=== PATIENT | female | born 1990 | race Caucasian/White ===

== ENCOUNTER 2023-01-12 06:25 | Emergency (ER) | payer OTHER ==
[~2023-01-12] VITALS: Ht 182.9 cm; Wt 99.8 kg
[2023-01-12 06:44] VITALS: BP 118/69; PULSE 84; RESP 20; TEMP 98; O2SAT 98
== END 2023-01-12 08:15 | disposition left against medical advice (07) ==
LOC: MED 06:25
DX: R00.2 Palpitations (principal); Z53.21 Procedure and treatment not carried out due to patient leaving prior to being seen by health care provider
CPT/HCPCS: 99281